=== PATIENT | male | born 1955 | race Caucasian/White ===

== ENCOUNTER 2023-03-31 11:20 | Emergency (ER) | payer BC ==
[~2023-03-31] VITALS: Ht 180.3 cm; Wt 102.1 kg
[2023-03-31 11:54] VITALS: O2SAT 97
[2023-03-31] MEDS ORDERED: LIDOCAINE JELLY 2% 10ML URO-JET TOP ONE (12:30)
[2023-03-31 13:41] LABS: BILIRUBIN,URINE NEGATIVE (NEGATIVE); CLARITY,URINE CLOUDY (CLEAR); COLOR,URINE YELLOW (YELLOW); GLUCOSE, URINE 500 (NEGATIVE); KETONES,URINE NEGATIVE (NEGATIVE); LEUKOCYTE ESTERASE ,URINE LARGE (NEGATIVE); NITRITE,URINE NEGATIVE (NEGATIVE); PH,URINE 6.5 (5 - 7); PROTEIN,URINE DIPSTICK NEGATIVE (NEGATIVE); URINE UROBILINOGEN 0.2 mg/dL (0.2 - 1)
[2023-03-31] MEDS ORDERED: CEFDINIR300 MG PO (13:56)
[2023-03-31 14:16] LABS: BACTERIA,URINE RARE /HPF; WBC,URINE (MAN) >50 /HPF (0-5)
== END 2023-03-31 14:23 | disposition home or self-care (01) ==
LOC: ER 11:43
DX: R33.9 Retention of urine, unspecified (principal); N39.0 Urinary tract infection, site not specified; I10 Essential (primary) hypertension; E11.9 Type 2 diabetes mellitus without complications; E78.5 Hyperlipidemia, unspecified; D64.9 Anemia, unspecified; Z96.652 Presence of left artificial knee joint
CPT/HCPCS: 51700; 81001; 87086; 99283

== ENCOUNTER 2023-04-16 17:13 | Emergency (ER) | payer BC ==
[~2023-04-16] VITALS: Ht 177.8 cm; Wt 104.3 kg
[~2023-04-16 17:13] MED LIST: CEFDINIR300 MG PO
[2023-04-16 18:47] LABS: BILIRUBIN,URINE NEGATIVE (NEGATIVE); CLARITY,URINE HAZY (CLEAR); COLOR,URINE YELLOW (YELLOW); GLUCOSE, URINE 500 (NEGATIVE); KETONES,URINE NEGATIVE (NEGATIVE); LEUKOCYTE ESTERASE ,URINE SMALL (NEGATIVE); NITRITE,URINE POSITIVE (NEGATIVE); PH,URINE 6 (5 - 7); PROTEIN,URINE DIPSTICK >=300 (NEGATIVE); URINE UROBILINOGEN 0.2 mg/dL (0.2 - 1)
[2023-04-16 19:00] LABS: BACTERIA,URINE FEW /HPF; WBC,URINE (MAN) >50 /HPF (0-5)
[2023-04-16] MEDS ORDERED: CEFDINIR300 MG PO (19:04)
[2023-04-16 19:11] VITALS: O2SAT 95
== END 2023-04-16 19:35 | disposition home or self-care (01) ==
LOC: ER 18:02
DX: Z46.6 Encounter for fitting and adjustment of urinary device (principal); N39.0 Urinary tract infection, site not specified; I10 Essential (primary) hypertension; E11.9 Type 2 diabetes mellitus without complications; E78.5 Hyperlipidemia, unspecified; D64.9 Anemia, unspecified; Z96.652 Presence of left artificial knee joint
CPT/HCPCS: 81001; 87086; 87186; 99282

== ENCOUNTER 2023-09-09 09:47 | Inpatient (IN) | payer BC, MEDICARE, OTHER ==
[2023-09-09] VITALS (7 sets, daily range): BP systolic 137–156; BP diastolic 63–73; PULSE 62–71; RESP 15–18; TEMP 97–98.6; O2SAT 99–100
[~2023-09-09] VITALS: Ht 177.8 cm; Wt 104.3 kg
[~2023-09-09 09:47] MED LIST changes: +ALTOPREV40 MG PO; +ATENOLOL25 MG PO; +B-121000 MC2 PO; +FERROUS SULFATE PO; +FLOMAX0.4 MG PO; +FOLIC ACID0.4 MG PO; +GLIPIZIDE5 MG PO; +JARDIANCE25 MG PO; +OXYBUTYNIN CHLOR5 MG PO; +PROTONIX20 MG PO; +VITAMIN D250 MCG PO
[2023-09-09 10:39] LABS: BASOPHILS % 0.6 % (0.0-1.0); EOSINOPHILS % 0.6 % (0.0-6.0); LYMPHOCYTES % 9.9 % (18.0-39.1); MEAN CORPUSCULAR HEMOGLOBIN 29.9 pg (28-32); MEAN CORPUSCULAR HGB CONC 32.4 g/dL (31-35); MONOCYTES % 8.7 % (4.4-11.3); NEUTROPHILS % 79.8 % (38.7-80.0); PLATELET COUNT 225 x10e3/uL (140-360); RED BLOOD COUNT 4.02 x10e6/uL (4.3-5.7); RED CELL DISTRIBUTION WIDTH 14.2 % (11.7-14.4); WHITE BLOOD COUNT 13.05 x10e3/uL (4.8-10.8)
[2023-09-09 10:40] LABS: BASOPHILS # (AUTO) 0.1 (0.0-0.1); EOSINOPHILS # (AUTO) 0.1 (0.0-0.4); LYMPHOCYTES # (AUTO) 1.3 (1.0-3.2); MONOCYTES # (AUTO) 1.1 (0.2-0.8); NEUTROPHILS # (AUTO) 10.4 (2.1-6.9)
[2023-09-09 10:52] LABS: INR 1.03; PROTHROMBIN TIME 14.2 seconds (11.9-14.5)
[2023-09-09 10:53] LABS: PARTIAL THROMBOPLASTIN TIME 32.6 seconds (23.8-35.5)
[2023-09-09 11:00] LABS: ALBUMIN/GLOBULIN RATIO 0.7 (0.8-2.0); ANION GAP 13.6 mmol/L (8-16); BILIRUBIN,TOTAL 0.4 mg/dL (0.2-1.2); CALCIUM 9.3 mg/dL (8.4-10.2); CREATININE, SERUM 2.78 mg/dL (0.72-1.25); MAGNESIUM 2.1 MG/DL (1.3-2.1); POTASSIUM 4.6 mmol/L (3.5-5.1); TOTAL PROTEIN 7.5 g/dL (6.5-8.1)
[2023-09-09 12:07] LABS: CLARITY,URINE CLOUDY (CLEAR); COLOR,URINE YELLOW (YELLOW); PH,URINE 6 (5 - 7)
[2023-09-09 12:08] LABS: BILIRUBIN,URINE NEGATIVE (NEGATIVE); GLUCOSE, URINE 500 (NEGATIVE); KETONES,URINE NEGATIVE (NEGATIVE); LEUKOCYTE ESTERASE ,URINE SMALL (NEGATIVE); NITRITE,URINE NEGATIVE (NEGATIVE); PROTEIN,URINE DIPSTICK 2+ (NEGATIVE); URINE UROBILINOGEN 0.2 mg/dL (0.2 - 1)
[2023-09-09 12:27] LABS: BACTERIA,URINE MANY /HPF; EPITHELIAL CELLS,URINE RARE /LPF; WBC,URINE (MAN) >50 /HPF (0-5)
[2023-09-09] MEDS ORDERED: TENORMIN25 MG PO (13:50)
[2023-09-09] MEDS ORDERED: JARDIANCE10 MG PO (13:50)
[2023-09-09] MEDS: Morphine 4mg INJECTION 4 MG/ML INJ IV PRN (14:04)
[2023-09-09] MEDS ORDERED: SODIUM CHLORIDE 0.9% 250ML 250 ML ONE (16:20)
[2023-09-10] VITALS (7 sets, daily range): BP systolic 113–138; BP diastolic 58–69; PULSE 69–75; RESP 17–20; TEMP 98.8–99.6; O2SAT 96–99
[2023-09-10 05:44] LABS: BASOPHILS # (AUTO) 0.1 (0.0-0.1); BASOPHILS % 0.7 % (0.0-1.0); EOSINOPHILS # (AUTO) 0.2 (0.0-0.4); EOSINOPHILS % 1.1 % (0.0-6.0); HEMATOCRIT 35.4 % (38.2-49.6); HEMOGLOBIN 11.3 g/dL (14.0-18.0); LYMPHOCYTES # (AUTO) 1.3 (1.0-3.2); MEAN CORPUSCULAR HEMOGLOBIN 29.6 pg (28-32); MEAN CORPUSCULAR HGB CONC 31.9 g/dL (31-35); MEAN CORPUSCULAR VOLUME 92.7 fL (81-99); MONOCYTES # (AUTO) 1.7 (0.2-0.8); MONOCYTES % 12.1 % (4.4-11.3); NEUTROPHILS # (AUTO) 10.7 (2.1-6.9); NEUTROPHILS % 76.7 % (38.7-80.0); PLATELET COUNT 226 x10e3/uL (140-360); RED BLOOD COUNT 3.82 x10e6/uL (4.3-5.7); RED CELL DISTRIBUTION WIDTH 14.1 % (11.7-14.4); WHITE BLOOD COUNT 13.96 x10e3/uL (4.8-10.8)
[2023-09-10] MEDS: ONDANSETRON HCL INJ 2MG/ML 2ML 2 MG/ML VIAL IV PRN (05:56)
[2023-09-10 06:17] LABS: ALBUMIN 2.7 g/dL (3.5-5.0); ALBUMIN/GLOBULIN RATIO 0.7 (0.8-2.0); ANION GAP 15.4 mmol/L (8-16); BILIRUBIN,TOTAL 0.5 mg/dL (0.2-1.2); CALCIUM 8.7 mg/dL (8.4-10.2); CREATININE, SERUM 3.04 mg/dL (0.72-1.25); POTASSIUM 4.4 mmol/L (3.5-5.1); TOTAL PROTEIN 6.7 g/dL (6.5-8.1)
[2023-09-10] MEDS ORDERED: ACETAMINOPHEN 325 MG TAB PO PRN (10:30)
[2023-09-10] MEDS ORDERED: HYDRALAZINE HCL 20 MG/ML VIAL IV PRN (10:45)
[2023-09-10] MEDS: Vancomycin IV 1 GM in SODIUM CHLORIDE 0.9% 250ML 250 ML IV SCH (11:37)
[2023-09-10] MEDS: SODIUM CHLORIDE 0.9% 1000ML 1,000 ML IV SCH (11:37)
[2023-09-10] MEDS: SODIUM BICARBONATE 650 MG TAB PO SCH (17:29)
[2023-09-10] MEDS: TAMSULOSIN HCL 0.4 MG CAP PO SCH (17:29)
[2023-09-10] MEDS ORDERED: ATENOLOL 50 MG TAB PO SCH (21:00)
[2023-09-11] VITALS (9 sets, daily range): BP systolic 117–141; BP diastolic 59–70; PULSE 67–76; RESP 17–20; TEMP 97.6–98.9; O2SAT 96–99
[2023-09-11] MEDS: ATENOLOL 50 MG TAB PO SCH (00:23)
[2023-09-11 06:06] LABS: BASOPHILS # (AUTO) 0.1 (0.0-0.1); BASOPHILS % 0.7 % (0.0-1.0); EOSINOPHILS # (AUTO) 0.2 (0.0-0.4); HEMATOCRIT 32.7 % (38.2-49.6); HEMOGLOBIN 10.6 g/dL (14.0-18.0); LYMPHOCYTES # (AUTO) 1.3 (1.0-3.2); MEAN CORPUSCULAR HEMOGLOBIN 30.2 pg (28-32); MEAN CORPUSCULAR HGB CONC 32.4 g/dL (31-35); MEAN CORPUSCULAR VOLUME 93.2 fL (81-99); MONOCYTES # (AUTO) 1.9 (0.2-0.8); MONOCYTES % 13.4 % (4.4-11.3); NEUTROPHILS # (AUTO) 10.9 (2.1-6.9); NEUTROPHILS % 75.4 % (38.7-80.0); PLATELET COUNT 220 x10e3/uL (140-360); RED BLOOD COUNT 3.51 x10e6/uL (4.3-5.7); RED CELL DISTRIBUTION WIDTH 14.3 % (11.7-14.4); WHITE BLOOD COUNT 14.41 x10e3/uL (4.8-10.8)
[2023-09-11 06:27] LABS: ANION GAP 15.1 mmol/L (8-16); CALCIUM 9.2 mg/dL (8.4-10.2); CREATININE, SERUM 3.24 mg/dL (0.72-1.25); POTASSIUM 4.1 mmol/L (3.5-5.1)
[2023-09-11 07:18] LABS: PHOSPHORUS 3.8 MG/DL (2.3-4.7)
[2023-09-11 07:39] LABS: THYROID STIMULATING HORMONE 1.488 uIU/mL (0.350-4.940)
[2023-09-11] MEDS ORDERED: BUPIVACAINE HCL 0.5% INJ 30 ML VIAL INJ ONE (09:46)
[2023-09-11] MEDS ORDERED: METOCLOPRAMIDE HCL 10 MG/2ML VIAL ONE (12:39)
[2023-09-11] MEDS ORDERED: EPHEDRINE SULFATE INJ 50 MG/ML VIAL ONE (12:39)
[2023-09-11] MEDS ORDERED: KETOROLAC TROMETHAMINE 30 MG/ML VIAL ONE (12:39)
[2023-09-11] MEDS ORDERED: PROPOFOL IV EMULSION 10 MG/ML 20 ML VIAL ONE (12:39)
[2023-09-11] MEDS ORDERED: ONDANSETRON HCL INJ 2MG/ML 2ML 2 MG/ML VIAL ONE (12:39)
[2023-09-11] MEDS ORDERED: SEVOFLURANE INHAL SOLN 250 ML PEN BTL ONE (12:39)
[2023-09-11] MEDS ORDERED: DEXAMETHASONE SOD PHOS INJ 4 MG/ML SDV ONE (12:39)
[2023-09-11] MEDS ORDERED: LIDOCAINE HCL 2% LOCAL INJ 5 ML SDV VIAL INJ ONE (12:39)
[2023-09-11] MEDS ORDERED: Morphine 10mg syringe 10 MG/ML INJ ONE (13:19)
[2023-09-11] MEDS ORDERED: FENTANYL CITRATE/PF 100MCG/2 ML INJ ONE (13:19)
[2023-09-11] MEDS ORDERED: DEXTROSE 50% SYRINGE 50 ML IV PRN (16:15)
[2023-09-11] MEDS: INSULIN GLARGINE 100 UNITS/ML VIAL SQ ONE (17:23)
[2023-09-11] MEDS: INSULIN LISPRO 100 UNIT/1 ML 3ML VIAL SQ SCH (17:24)
[2023-09-12] VITALS (10 sets, daily range): BP systolic 133–154; BP diastolic 67–79; PULSE 57–72; RESP 17–18; TEMP 97.4–98.1; O2SAT 97–99
[2023-09-12 08:03] LABS: BASOPHILS % 0.1 % (0.0-1.0); EOSINOPHILS % 0.1 % (0.0-6.0); HEMATOCRIT 31.1 % (38.2-49.6); LYMPHOCYTES # (AUTO) 0.9 (1.0-3.2); LYMPHOCYTES % 6.2 % (18.0-39.1); MEAN CORPUSCULAR HEMOGLOBIN 29.6 pg (28-32); MEAN CORPUSCULAR HGB CONC 32.2 g/dL (31-35); MONOCYTES # (AUTO) 1.1 (0.2-0.8); MONOCYTES % 7.5 % (4.4-11.3); NEUTROPHILS # (AUTO) 12.4 (2.1-6.9); NEUTROPHILS % 85.1 % (38.7-80.0); PLATELET COUNT 240 x10e3/uL (140-360); RED BLOOD COUNT 3.38 x10e6/uL (4.3-5.7); RED CELL DISTRIBUTION WIDTH 13.3 % (11.7-14.4); WHITE BLOOD COUNT 14.59 x10e3/uL (4.8-10.8)
[2023-09-12 08:27] LABS: ALBUMIN 2.4 g/dL (3.5-5.0); ALBUMIN/GLOBULIN RATIO 0.6 (0.8-2.0); ANION GAP 15.3 mmol/L (8-16); BILIRUBIN,TOTAL 0.3 mg/dL (0.2-1.2); CALCIUM 8.4 mg/dL (8.4-10.2); CREATININE, SERUM 3.06 mg/dL (0.72-1.25); POTASSIUM 4.3 mmol/L (3.5-5.1); TOTAL PROTEIN 6.3 g/dL (6.5-8.1); URIC ACID 5.8 mg/dL (4.8-8.0)
[2023-09-12 08:31] LABS: VANCOMYCIN,TROUGH 11.4 ug/mL (5.0-10.0)
[2023-09-12] MEDS: INSULIN GLARGINE 100 UNITS/ML VIAL SQ ONE (12:16)
[2023-09-12] MEDS: HYDROCODONE/APAP 10MG-325MG TAB PO PRN (15:22)
[2023-09-12] MEDS: GLIPIZIDE 5 MG TAB PO SCH (16:35)
[2023-09-12] MEDS: INSULIN GLARGINE 100 UNITS/ML VIAL SQ SCH (21:12)
[2023-09-13 00:22] VITALS: BP 148/68; PULSE 54; RESP 16; TEMP 97.5; O2SAT 97
[2023-09-13 05:53] VITALS: BP 161/73; PULSE 59; RESP 17; TEMP 97.7; O2SAT 99
[2023-09-13 07:00] VITALS: BP 161/73; PULSE 59; RESP 17; TEMP 97.7; O2SAT 99
[2023-09-13 07:08] LABS: BASOPHILS # (AUTO) 0.1 (0.0-0.1); BASOPHILS % 0.5 % (0.0-1.0); EOSINOPHILS # (AUTO) 0.5 (0.0-0.4); EOSINOPHILS % 4.2 % (0.0-6.0); HEMATOCRIT 31.7 % (38.2-49.6); HEMOGLOBIN 9.9 g/dL (14.0-18.0); LYMPHOCYTES # (AUTO) 2.3 (1.0-3.2); LYMPHOCYTES % 19.3 % (18.0-39.1); MEAN CORPUSCULAR HEMOGLOBIN 29.7 pg (28-32); MEAN CORPUSCULAR HGB CONC 31.2 g/dL (31-35); MEAN CORPUSCULAR VOLUME 95.2 fL (81-99); MONOCYTES # (AUTO) 1.1 (0.2-0.8); MONOCYTES % 9.6 % (4.4-11.3); NEUTROPHILS # (AUTO) 7.7 (2.1-6.9); PLATELET COUNT 260 x10e3/uL (140-360); RED BLOOD COUNT 3.33 x10e6/uL (4.3-5.7); RED CELL DISTRIBUTION WIDTH 13.5 % (11.7-14.4); WHITE BLOOD COUNT 11.89 x10e3/uL (4.8-10.8)
[2023-09-13 07:20] LABS: ANION GAP 12.9 mmol/L (8-16); CALCIUM 8.2 mg/dL (8.4-10.2); CREATININE, SERUM 2.67 mg/dL (0.72-1.25); POTASSIUM 3.9 mmol/L (3.5-5.1)
[2023-09-13 07:40] VITALS: PULSE 65; RESP 18; O2SAT 99
[2023-09-13 08:33] VITALS: BP 150/67; PULSE 57; RESP 18; TEMP 97.8; O2SAT 99
[2023-09-13] MEDS: EMPAGLIFLOZIN 10 MG TABLET PO SCH (10:07)
[2023-09-13] MEDS: SODIUM BICARBONATE 650 MG TAB PO SCH (10:07)
[2023-09-13] MEDS: FOLIC ACID 1 MG TAB PO SCH (10:07)
[2023-09-13 12:14] VITALS: BP 136/65; PULSE 57; RESP 20; TEMP 97.9; O2SAT 97
[2023-09-13] MEDS ORDERED: ONDANSETRON HCL 4 MG ORAL DISINTEGRATING TAB PO PRN (12:30)
== END 2023-09-13 13:15 | disposition home or self-care (01) | DRG 854 ==
LOC: ER 10:00 → ERHOLD 12:03 → MED/SURG3 13:08
PROVIDERS: ADMIT Internal Medicine; ATTEND Internal Medicine
PROC: 3E03329 Introduction of Other Anti-infective into Peripheral Vein, Percutaneous Approach (ICD-10-PCS; 2023-09-09)
PROC: 0T7D8ZZ Dilation of Urethra, Via Natural or Artificial Opening Endoscopic (ICD-10-PCS; 2023-09-11)
PROC: 0VT90ZZ Resection of Right Testis, Open Approach (ICD-10-PCS; principal; 2023-09-11 09:43)
DX: A41.9 Sepsis, unspecified organism (principal); E87.20 Acidosis, unspecified; N17.9 Acute kidney failure, unspecified; N39.0 Urinary tract infection, site not specified; N18.4 Chronic kidney disease, stage 4 (severe); Z16.12 Extended spectrum beta lactamase (ESBL) resistance; N45.3 Epididymo-orchitis; B96.1 Klebsiella pneumoniae [K. pneumoniae] as the cause of diseases classified elsewhere; I12.9 Hypertensive chronic kidney disease with stage 1 through stage 4 chronic kidney disease, or unspecified chronic kidney disease; Z11.52 Encounter for screening for COVID-19; E11.22 Type 2 diabetes mellitus with diabetic chronic kidney disease; E78.5 Hyperlipidemia, unspecified; N40.1 Benign prostatic hyperplasia with lower urinary tract symptoms; R35.0 Frequency of micturition; N43.3 Hydrocele, unspecified; Z79.899 Other long term (current) drug therapy; D63.1 Anemia in chronic kidney disease; E66.9 Obesity, unspecified; B96.89 Other specified bacterial agents as the cause of diseases classified elsewhere; Z96.652 Presence of left artificial knee joint; Z87.891 Personal history of nicotine dependence; Z79.84 Long term (current) use of oral hypoglycemic drugs; Z90.49 Acquired absence of other specified parts of digestive tract; R33.8 Other retention of urine; N35.819 Other urethral stricture, male, unspecified site
CPT/HCPCS: 36415; 74176; 76870; 80048; 80053; 80202; 81001; 82550; 82948; 83036; 83735; 83880; 84100; 84443; 84550; 85025; 85610; 85730; 87040; 87071; 87075; 87086; 87186; 87205; 88304; 88307; 93976; 94799; 99284; J1100; J1815; J1885; J2001; J2270; J2405; J2543; J2765; J7030; J7050; U0002

== ENCOUNTER 2023-11-03 06:00 | Observation (INO) | payer MEDICARE, OTHER ==
[2023-11-01 12:32] LABS: BASOPHILS # (AUTO) 0.1 (0.0-0.1); BASOPHILS % 1.3 % (0.0-1.0); EOSINOPHILS # (AUTO) 0.2 (0.0-0.4); EOSINOPHILS % 2.3 % (0.0-6.0); HEMATOCRIT 38.6 % (38.2-49.6); HEMOGLOBIN 12.1 g/dL (14.0-18.0); LYMPHOCYTES # (AUTO) 1.9 (1.0-3.2); LYMPHOCYTES % 27.6 % (18.0-39.1); MEAN CORPUSCULAR HEMOGLOBIN 29.9 pg (28-32); MEAN CORPUSCULAR HGB CONC 31.3 g/dL (31-35); MEAN CORPUSCULAR VOLUME 95.3 fL (81-99); MONOCYTES # (AUTO) 0.6 (0.2-0.8); MONOCYTES % 8.2 % (4.4-11.3); NEUTROPHILS # (AUTO) 4.1 (2.1-6.9); PLATELET COUNT 251 x10e3/uL (140-360); RED BLOOD COUNT 4.05 x10e6/uL (4.3-5.7); RED CELL DISTRIBUTION WIDTH 14.3 % (11.7-14.4); WHITE BLOOD COUNT 6.86 x10e3/uL (4.8-10.8)
[2023-11-01 14:42] LABS: ANION GAP 14.4 mmol/L (8-16); CALCIUM 8.9 mg/dL (8.4-10.2); CREATININE, SERUM 2.54 mg/dL (0.72-1.25); POTASSIUM 4.4 mmol/L (3.5-5.1)
[~2023-11-03] VITALS: Ht 177.8 cm; Wt 113.9 kg
[~2023-11-03 06:00] MED LIST changes: +AMOXICILLIN250 MG PO; +AUGMENTIN 500-1 EACH PO; +JARDIANCE10 MG PO; +TENORMIN25 MG PO
[2023-11-03] MEDS: GENTAMICIN 80MG/NS 100 ML 200 ML IV ONE (06:28)
[2023-11-03] MEDS: LACTATED RINGER'S 1,000 ML ONE (06:28)
[2023-11-03] MEDS: CEFTRIAXONE 1 GM VIAL ONE (06:29)
[2023-11-03] MEDS ORDERED: IOPAMIDOL 610MG/1ML 300 MG/ML VIAL IV ONE (06:57)
[2023-11-03] MEDS: ACETAMINOPHEN/CODEINE 300MG - 30MG TAB PO PRN (08:50)
[2023-11-03] MEDS: PHENAZOPYRIDINE HCL 100 MG TAB PO PRN (08:50)
[2023-11-03 09:35] VITALS: BP 135/69; PULSE 67; RESP 18; TEMP 97.5; O2SAT 100
[2023-11-03 10:30] VITALS: BP 135/69; PULSE 67; RESP 18; TEMP 97.5; O2SAT 100
[2023-11-03 10:38] VITALS: BP 135/69; PULSE 67; RESP 18; TEMP 97.5; O2SAT 100
[2023-11-03 11:59] VITALS: BP 138/71; PULSE 68; RESP 17; TEMP 97.4; O2SAT 100
[2023-11-03] MEDS ORDERED: FENTANYL CITRATE/PF 100MCG/2 ML INJ ONE (13:20)
[2023-11-03] MEDS ORDERED: BACTRIM DS TAB1 EACH PO (15:04)
[2023-11-03 15:34] VITALS: BP 129/69; PULSE 74; RESP 17; TEMP 98; O2SAT 99
[2023-11-03] MEDS: TRIMETHOPRIM/SULFAMETHOXAZOLE 160-800 MG TAB PO SCH (16:28)
[2023-11-03] MEDS ORDERED: DEXAMETHASONE SOD PHOS INJ 4 MG/ML SDV ONE (17:20)
[2023-11-03] MEDS ORDERED: PROPOFOL IV EMULSION 10 MG/ML 20 ML VIAL ONE (17:20)
[2023-11-03] MEDS ORDERED: ROCURONIUM BROMIDE 10 MG/ML 5ML VIAL IV ONE (17:20)
[2023-11-03] MEDS ORDERED: LIDOCAINE HCL 2% LOCAL INJ 5 ML SDV VIAL INJ ONE (17:20)
[2023-11-03] MEDS ORDERED: SEVOFLURANE INHAL SOLN 250 ML PEN BTL ONE (17:20)
[2023-11-03] MEDS ORDERED: SUCCINYLCHOLINE CHLORIDE 20 MG/ML 10ML VIAL ONE (17:20)
== END 2023-11-03 17:03 | disposition home or self-care (01) ==
LOC: OR 06:00 → PACU V 08:35 → MED/SURG2 09:27
PROVIDERS: ADMIT Urology; ATTEND Urology
DX: N32.0 Bladder-neck obstruction (principal); C61 Malignant neoplasm of prostate; R31.29 Other microscopic hematuria; N35.914 Unspecified anterior urethral stricture, male; N39.0 Urinary tract infection, site not specified; Z90.79 Acquired absence of other genital organ(s); I12.9 Hypertensive chronic kidney disease with stage 1 through stage 4 chronic kidney disease, or unspecified chronic kidney disease; E11.22 Type 2 diabetes mellitus with diabetic chronic kidney disease; N18.9 Chronic kidney disease, unspecified; Z79.84 Long term (current) use of oral hypoglycemic drugs; E78.5 Hyperlipidemia, unspecified; K21.9 Gastro-esophageal reflux disease without esophagitis; K44.9 Diaphragmatic hernia without obstruction or gangrene; M54.9 Dorsalgia, unspecified; G89.29 Other chronic pain; R94.31 Abnormal electrocardiogram [ECG] [EKG]; Z01.818 Encounter for other preprocedural examination; Z01.810 Encounter for preprocedural cardiovascular examination; Z01.812 Encounter for preprocedural laboratory examination; Z79.899 Other long term (current) drug therapy
CPT/HCPCS: 36415 ×2; 52500; 71046; 74420; 80048; 82948; 85025; 93005; C1758; G0378; J0330; J0696; J1100; J1580; J2001; J2704; J3010; J7121; Q9967

== ENCOUNTER → 2024-04-14 | Outpatient (REF) | payer MEDICARE, OTHER ==
[~2024-04-14] MED LIST changes: +BACTRIM DS TAB1 EACH PO
== END ==
LOC: CT 07:45
PROVIDERS: ATTEND Urology
DX: N50.89 Other specified disorders of the male genital organs (principal)
CPT/HCPCS: 72192; 76870; 93976